=== PATIENT | male | born 1955 | race Caucasian/White ===

== ENCOUNTER 2017-07-23 11:45 | Emergency (ER) | payer BC ==
[2017-07-23 11:54] VITALS: TEMP 98.5
[2017-07-23 12:28] LABS: BASOPHILS % (AUTO) 1 % (0-3); EOSINOPHILS % (AUTO) 1 % (0-9); HEMATOCRIT 47 % (39-53); MEAN CORPUSCULAR HGB CONC 35.6 gm/dl (32.0-36.0); MEAN CORPUSCULAR VOLUME 85 fL (80-100)
[2017-07-23 12:43] LABS: CALCIUM 9.2 mg/dl (8.5-10.1); POTASSIUM 4.1 mMol/L (3.5-5.1)
[2017-07-23] MEDS ORDERED: LABETALOL HYDROCHLORIDE 5 MG/ML SOL IV ONE ×3 (13:02→13:28)
[2017-07-23] MEDS: SODIUM CHLORIDE 0.9% FLUSH 10 ML SOL IV PRN ×4 (13:10→13:53)
[2017-07-23] MEDS ORDERED: HYDRALAZINE HYDROCHLORIDE 20 MG/ML SOL IV ONE (13:46)
[2017-07-23] MEDS ORDERED: HYDRALAZINE HYDROCHLORIDE 20 MG/ML SOL ONE (13:50)
[2017-07-23 14:46] VITALS: RESP 20
[2017-07-23 14:49] VITALS: BP 156/97; PULSE 78; O2SAT 97
== END 2017-07-23 14:23 | disposition short-term general hospital (02) ==
LOC: ED 11:45
DX: I62.9 Nontraumatic intracranial hemorrhage, unspecified (principal); R47.01 Aphasia
CPT/HCPCS: 99285 ×2; 70450 ×2; 80053; 85025; 85610; 85730; J0360; 36415

== ENCOUNTER 2017-08-10 05:09 | Emergency (ER) | payer BC ==
[2017-08-10 05:27] VITALS: RESP 18; TEMP 98.6
[2017-08-10] MEDS ORDERED: APAP/HYDROCODONE 325/5 TAB PO ONE (06:52)
[2017-08-10] MEDS ORDERED: APAP/HYDROCODONE 325/5 TAB ONE (06:55)
[2017-08-10 07:08] VITALS: BP 133/78; PULSE 69; O2SAT 96
== END 2017-08-10 07:02 | disposition home or self-care (01) ==
LOC: ED 05:09
DX: S63.502A Unspecified sprain of left wrist, initial encounter (principal); W30.81XA Contact with agricultural transport vehicle in stationary use, initial encounter
CPT/HCPCS: 73110; 99282

== ENCOUNTER 2019-03-10 14:21 | Outpatient (CLI) | payer BC ==
[2017-08-10 07:08] VITALS: O2SAT 96
== END 2019-03-10 14:22 | disposition home or self-care (01) ==
LOC: CONVCARE 14:21
PROVIDERS: ATTEND Orthopaedic Surgery
DX: M25.532 Pain in left wrist (principal); M25.512 Pain in left shoulder; M25.511 Pain in right shoulder
CPT/HCPCS: 73030; 73110